=== PATIENT | male | born 2000 | race Two or more races ===

== ENCOUNTER 2020-03-28 16:25 | Emergency (ER) | payer SELFPAY ==
[~2020-03-28] VITALS: Ht 170.2 cm; Wt 68.1 kg
[2020-03-28] MEDS ORDERED: AZITHROMYCIN 250 MG TABLET. PO ONE ×2 (17:00→18:00)
[2020-03-28 17:09] LABS: BILIRUBIN,URINE NEGATIVE (NEG); CLARITY,URINE CLOUDY; COLOR,URINE YELLOW; NITRITE,URINE NEGATIVE (NEG); PH,URINE 5.5 (<5.0-8.0); PROTEIN,URINE 30 mg/dL (NEG-TRACE); UROBILINOGEN,URINE 0.2 mg/dL (0.2 mg/dL)
--- NOTE | 2020-03-28 17:27 | PHYS DOC ---
Past Medical History Past Medical History: No Pertinent History Past Surgical History: No Surgical History Smoking Status: Never Smoker Alcohol Use: None General Adult EDM: Chief Complaint: SEXUALLY TRANSMITTED DISEASE HPI: HPI: Patient is a 19 year old male who presents to the ED today complaining of dysuria and concerned he has an STD. Patient would like to be tested and treated. Review of Systems: Review of Systems: Constitutional: Denies fever or chills. [] GI: Denies abdominal pain, nausea, vomiting, bloody stools or diarrhea. [] : Reports dysuria Musculoskeletal: Denies back pain or joint pain. [] Integument: Denies rash. [] Neurologic: Denies headache, focal weakness or sensory changes. [] Psychiatric: Denies depression or anxiety. [] Heart Score: Risk Factors: Risk Factors: DM, Current or recent (<one month) smoker, HTN, HLP, family history of CAD, obesity. Risk Scores: Score 0 - 3: 2.5% MACE over next 6 weeks - Discharge Home Score 4 - 6: 20.3% MACE over next 6 weeks - Admit for Clinical Observation Score 7 - 10: 72.7% MACE over next 6 weeks - Early Invasive Strategies Current Medications: Current Medications Medications (Trade) Dose Ordered Sig/John Start Time Stop Time Status Last Admin Dose Admin Azithromycin (Zithromax) 1,000 mg 1X ONCE 03/28/20 17:00 03/28/20 17:01 UNV Metronidazole (Flagyl) 2,000 mg 1X ONCE 03/28/20 17:00 03/28/20 17:01 UNV Allergies: Allergies: Allergies Coded Allergies Type Severity Reaction Last Updated Verified No Known Drug Allergies 03/28/20 No Physical Exam: PE: Constitutional: Well developed, well nourished, no acute distress, non-toxic appearance. [] Abdomen: Bowel sounds normal, soft, no tenderness, no masses, no pulsatile masses. [] Skin: Warm, dry, no erythema, no rash. [] Back: No tenderness, no CVA tenderness. [] Extremities: No tenderness, no cyanosis, no clubbing, ROM intact, no edema. [] Neurologic: Alert and oriented X 3, normal motor function, normal sensory function, no focal deficits noted. [] Psychologic: Affect normal, judgement normal, mood normal. [] Current Patient Data: Vital Signs: Vital Signs Date Time Temp Pulse Resp B/P (MAP) Pulse Ox O2 Delivery O2 Flow Rate FiO2 03/28/20 16:30 97.6 88 18 131/68 (89) 97 Room Air 97.6 EKG: EKG: [] Radiology/Procedures: Radiology/Procedures: [] Course & Med Decision Making: Course & Med Decision Making Pertinent Labs and Imaging studies reviewed. (See chart for details) This is a 19-year-old male patient presenting to the ED today requesting STD treatment and testing. He was treated, he will be called and informed his results if positive in the course of this week. [email or web address] Disclaimer: [email or web address] Disclaimer: This electronic medical record was generated, in whole or in part, using a voice recognition dictation system. Departure Departure Impression: Primary Impression: Concern about STD in male without diagnosis Disposition: 01 HOME, SELF-CARE Condition: STABLE Referrals: NO PCP (PCP) follow up with your doctor in 2 weeks Patient Instructions: Sexually Transmitted Disease, [id number] Additional Instructions: You were treated for sexually transmitted diseases. Use protection at all times. We will call you in the next 3 to 7 days if your results are positive. Do not have sex for whole week. Please let your partners know you were treated for STDs and asked him to seek treatment. Justicifation of Admission Dx: Justifications for Admission: Justification of Admission Dx: N/A ALBERTO ZAIDI APRN Mar 28, 2020 17:27
[2020-03-28 17:29] LABS: WBC,URINE TNTC /HPF (0-4)
[2020-03-28 17:30] LABS: BACTERIA,URINE MANY /HPF (0-FEW)
[2020-03-28 17:45] VITALS: BP 135/71
[2020-03-28] MEDS ORDERED: metroNIDAZOLE 500 MG TABLET PO ONE (18:00)
== END 2020-03-28 17:45 | disposition home or self-care (01) ==
LOC: ER 16:25
DX: R30.0 Dysuria (principal); Z20.2 Contact with and (suspected) exposure to infections with a predominantly sexual mode of transmission
CPT/HCPCS: 81001; 87491; 87591; 99283